=== PATIENT | female | born 1990 | race African-American/Black ===

== ENCOUNTER 2019-06-30 07:20 | Emergency (ER) | payer MEDICAID ==
[~2019-06-30] VITALS: Ht 170.2 cm; Wt 89.0 kg
[2019-06-30] MEDS ORDERED: LEVO25TA9 PO (07:35)
[2019-06-30 09:27] VITALS: BP 112/77
== END 2019-06-30 09:29 | disposition home or self-care (01) ==
LOC: EMS 07:21
DX: S00.83XA Contusion of other part of head, initial encounter (principal); E03.9 Hypothyroidism, unspecified; F12.90 Cannabis use, unspecified, uncomplicated; W22.8XXA Striking against or struck by other objects, initial encounter; Y93.89 Activity, other specified; Y92.89 Other specified places as the place of occurrence of the external cause; Y99.8 Other external cause status